=== PATIENT | male | born 1965 | race Caucasian/White ===

== ENCOUNTER → 2017-06-21 | Outpatient (CLI) | payer BC ==
--- NOTE | 2017-06-21 15:34 | KCIC ---
MR of the left knee Indication: Left knee pain and tightness after sitting. Posterolateral pain for 6 days. Technique: The standard multiplanar sequences are obtained. Findings: Medial meniscus: Tear at the posterior root attachment of the medial meniscus. There is medial subluxation of the medial meniscus. Additional tearing through the posterior horn and body. Lateral meniscus: Mild signal but no convincing evidence of a tear. Anterior cruciate ligament: Thickening and hyperintense signal, compatible with degeneration. No evidence of a tear or rupture. Posterior cruciate ligament: Intact Medial collateral ligament: Mild proximal scarring. No acute tear. Iliotibial band: Intact. Posterolateral structures: Fibular collateral ligament, biceps tendon and popliteus tendon are intact. Extensor mechanism: Intact. Fluid: No significant joint effusion. No significant Gillespie's cyst. Articular cartilage -patellofemoral joint: Severe chondromalacia of the femoral trochlea. Mild chondromalacia of the patella. -medial compartment: Severe chondromalacia at the central weightbearing medial compartment with small cysts. -lateral compartment: Mild chondromalacia. Bones: No significant lesion or acute fracture. Soft tissue: Unremarkable Impression: 1. Medial meniscal tear. 2. Primary osteoarthritis. Electronically signed by: Carson Durham MD (06/21/2017 3:30 PM) [id number]
== END | disposition home or self-care (01) ==
LOC: KCIC MRI 13:29
PROVIDERS: ATTEND Orthopaedic Surgery
DX: S83.242A Other tear of medial meniscus, current injury, left knee, initial encounter (principal); M17.12 Unilateral primary osteoarthritis, left knee; M22.42 Chondromalacia patellae, left knee; X58.XXXA Exposure to other specified factors, initial encounter; Y93.89 Activity, other specified; Y92.89 Other specified places as the place of occurrence of the external cause; Y99.8 Other external cause status
CPT/HCPCS: 73721